=== PATIENT | female | born 1970 | race Two or more races ===

== ENCOUNTER 2018-03-24 10:00 | Inpatient (IN) | payer OTHER ==
[~2018-03-24] VITALS: Ht 154.9 cm; Wt 61.7 kg
[~2018-03-24 10:00] MED LIST: PROGESTER
[2018-03-24] MEDS ORDERED: LISINOPRIL10 MG PO (12:47)
[2018-04-02] MEDS ORDERED: CIPRO500 MG PO (06:34)
[2018-04-02] MEDS ORDERED: ULTRACET PO (06:34)
[2018-04-02] MEDS ORDERED: IBUPROFEN400 MG PO (06:34)
[2018-04-02] MEDS ORDERED: LEVSIN/SL0.125 MG PO (06:34)
== END 2018-04-02 09:37 | disposition home or self-care (01) | DRG 743 ==
LOC: O/R 03-31 06:20 → OB/GYN 03-31 06:20
PROVIDERS: Obstetrics & Gynecology Gynecology
PROC: 0UT70ZZ Resection of Bilateral Fallopian Tubes, Open Approach (ICD-10-PCS; 2018-03-31)
PROC: 0UT90ZZ Resection of Uterus, Open Approach (ICD-10-PCS; principal; 2018-03-31 15:45)
DX: D25.1 Intramural leiomyoma of uterus (principal); N92.0 Excessive and frequent menstruation with regular cycle; I10 Essential (primary) hypertension; N83.8 Other noninflammatory disorders of ovary, fallopian tube and broad ligament; N80.0 Endometriosis of uterus